=== PATIENT | male | born 2000 | race African-American/Black ===

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

== ENCOUNTER 2021-09-01 08:25 | Emergency (ER) | payer OTHER ==
[~2021-09-01] VITALS: Ht 177.8 cm; Wt 95.5 kg
[2021-09-01] MEDS ORDERED: IBUPROFEN 600 MG TABLET PO ONE (08:45)
[2021-09-01] MEDS ORDERED: ACETAMINOPHEN 500 MG TABLET PO ONE (08:45)
[2021-09-01 08:47] VITALS: BP 115/57
[2021-09-01 08:49] LABS: COVID AG,FIA SOURCE NASOPHARYNGEAL
[2021-09-01 09:25] LABS: INFLUENZA TYPE A NEGATIVE FOR TYPE A (NEGATIVE); INFLUENZA TYPE B NEGATIVE FOR TYPE B (NEGATIVE)
[2021-09-01 09:27] LABS: RAPID GROUP A STREP NEGATIVE (NEGATIVE)
[2021-09-02] MEDS ORDERED: IBUP-1554 PO (18:41)
[2021-09-02] MEDS ORDERED: ACET-66 PO (18:41)
[2021-09-02] MEDS ORDERED: GUAIFDM PO (18:41)
[2021-09-02] MEDS ORDERED: DIPH25TA20 PO (18:41)
== END 2021-09-01 10:07 | disposition home or self-care (01) ==
LOC: EMS 08:25
DX: B34.9 Viral infection, unspecified (principal); Z20.822 Contact with and (suspected) exposure to COVID-19
CPT/HCPCS: 87430; 87804; 99283

== ENCOUNTER 2021-09-02 15:15 | Emergency (ER) | payer OTHER ==
[~2021-09-02] VITALS: Ht 185.4 cm; Wt 118.2 kg
[2021-09-02 16:08] LABS: BASOPHILS % (AUTO) 0.8 % (0.0-2.0); EOSINOPHILS % (AUTO) 0.7 % (1.0-6.0); HEMOGLOBIN 15.4 g/dL (13.5-17.5); LYMPHOCYTES # (AUTO) 3.9 K/uL (1.0-4.8); LYMPHOCYTES % (AUTO) 32.2 % (22.0-44.0); MEAN CORPUSCULAR HGB CONC 34.3 G/dL (31.0-37.0); MEAN CORPUSCULAR VOLUME 82 fL (80-100); MONOCYTES % (AUTO) 8.5 % (2.0-9.0); NEUTROPHILS % (AUTO) 57.8 % (40.0-70.0); PLATELET COUNT (AUTO) 307 K/uL (150-450); RED BLOOD CELL COUNT(AUTO) 5.51 MIL/uL (4.50-5.90)
[2021-09-02 16:10] VITALS: BP 128/66
[2021-09-02 16:22] LABS: ANION GAP 17 mmol/L (8-16); CALCIUM, TOTAL 9.4 mg/dL (8.8-10.5); CARBON DIOXIDE 22 mmol/L (22-29); CHLORIDE 100 mmol/L (98-107); GLOMERULAR FILTR. RATE CALC > 60 mL/min (>60); GLUCOSE,RANDOM 105 mg/dL (70-110); POTASSIUM 3.3 mmol/L (3.5-5.1); SODIUM SERUM 139 mmol/L (136-145); UREA NITROGEN, BLOOD 13 mg/dL (7-18)
[2021-09-02 16:28] LABS: ALANINE AMINOTRANSFERASE 34 U/L (12-78); ALKALINE PHOSPHATASE 58 U/L (46-116); ASPARTATE AMINOTRANSFERASE 21 U/L (15-37); BILIRUBIN,TOTAL 0.3 mg/dL (0.1-1.0); TOTAL PROTEIN, SERUM 8.9 g/dL (6.4-8.2)
[2021-09-02] MEDS ORDERED: IBUP-1554 PO (18:41)
[2021-09-02] MEDS ORDERED: ACET-66 PO (18:41)
[2021-09-02] MEDS ORDERED: DIPH25TA20 PO (18:41)
[2021-09-02] MEDS ORDERED: GUAIFDM PO (18:41)
[2021-09-02] MEDS ORDERED: ACETAMINOPHEN 500 MG TABLET PO ONE (18:45)
[2021-09-02] MEDS ORDERED: IBUPROFEN 600 MG TABLET PO ONE (18:45)
== END 2021-09-02 19:11 | disposition home or self-care (01) ==
LOC: EMS 15:15
DX: J02.9 Acute pharyngitis, unspecified (principal); J06.9 Acute upper respiratory infection, unspecified; T78.40XA Allergy, unspecified, initial encounter; X58.XXXA Exposure to other specified factors, initial encounter
CPT/HCPCS: 80053; 85025; 93005; 99284